=== PATIENT | female | born 1990 | race African-American/Black ===

== ENCOUNTER 2018-10-05 11:00 | Emergency (ER) | payer SELFPAY ==
[~2018-10-05] VITALS: Ht 162.6 cm; Wt 73.4 kg
--- NOTE | 2018-10-05 11:35 | NUR ---
ABD CRAMPING AND PAIN X 4 DAYS. LMP 08/29/18. POSITIVE HOME TEST 09/27. REPORTS SIMILIAR SXS WITH MISCARRIAGES-HX OF 2
[2018-10-05] MEDS ORDERED: PREN-3 PO (11:38)
[2018-10-05 12:00] LABS: MICROSCOPIC NOT IND
--- NOTE | 2018-10-05 12:00 | NUR ---
PATIENT TO US
[2018-10-05 12:03] LABS: CULTURE INDICATED? NO
[2018-10-05 12:13] LABS: BASOPHILS # (AUTO) 0.03 x10^3/uL (0-0.1); BASOPHILS % (AUTO) 1 % (0-1); EOSINOPHILS # (AUTO) 0.11 x10^3/uL (0-0.4); EOSINOPHILS % (AUTO) 2 % (1-7); LYMPHOCYTES # (AUTO) 1.07 x10^3/uL (1-3.4); LYMPHOCYTES % (AUTO) 17 % (22-44); MD NO; MEAN CORPUSCULAR HEMOGLOBIN 31.6 pg (27.0-34.8); MEAN CORPUSCULAR HGB CONC 33.6 g/dL (32.4-35.8); MEAN CORPUSCULAR VOLUME 94.1 fL (80-100); MEAN PLATELET VOLUME 8.8 fL (7.4-10.4); MONOCYTES # (AUTO) 0.44 x10^3/uL (0.2-0.8); MONOCYTES % (AUTO) 7 % (2-9); NEUTROPHILS # (AUTO) 4.69 x10^3/uL (1.8-6.8); NEUTROPHILS % (AUTO) 74 % (42-75); PLATELET COUNT 254 x10^3/uL (130-400); RED BLOOD COUNT 3.78 x10^6/uL (3.82-5.3); RED CELL DISTRIBUTION WIDTH 13.6 % (9.6-15.2)
--- NOTE | 2018-10-05 13:20 | NUR ---
Patient resting on gurnery w/ call mcgowan in hand. Continues to report mild lower abd pain/ nausea- provider made aware. Updated on estimated poc Patient/family provided with water/crackers Recheck placed as results back Call mcgowan within reach- will continue to monitor
[2018-10-05] MEDS ORDERED: ONDANSETRON ODT 4 MG PO ONE (13:30)
[2018-10-05] MEDS ORDERED: ONDANSETRON ODT 4 MG ONE (13:51)
--- NOTE | 2018-10-05 14:05 | NUR ---
PATIENT REPORT NAUSEA IMPROVED TO 1/10. PROVIDER AGAIN ASKED FOR NSAID FOR CONTINUED 2-3/10 CRAMPING. DEFERRED AT THIS TIME. PATIENT AGREEABLE W/ PENDING DISPO PROVIDER TO BEDSIDE TO EXPLAIN RESULT- PLAN ON RE-CHECK IN 7 DAYS IF NOT EARLIER IF SXS REMAIN OR WORSEN. PATIENT/FAMILY AGREEABLE
[2018-10-05 14:14] VITALS: BP 124/74
== END 2018-10-05 14:17 | disposition home or self-care (01) ==
LOC: ED 12:41
DX: O26.891 Other specified pregnancy related conditions, first trimester (principal); R10.2 Pelvic and perineal pain; Z3A.01 Less than 8 weeks gestation of pregnancy
CPT/HCPCS: 36415; 76801; 81003; 84702; 85025; 99284; Q0162